=== PATIENT | female | born 1965 | race Caucasian/White ===

== ENCOUNTER 2021-05-09 14:33 | Emergency (ER) | payer SELFPAY ==
[2021-05-09 16:42] VITALS: BP 132/63; PULSE 89; RESP 15; TEMP 36.7; O2SAT 96; BMI 27.4
--- NOTE | 2021-05-09 16:55 | XRR_ITS ---
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 Pain in right great toe and 2nd digit; Additional info: Injury foot TECHNIQUE: Imaging protocol: XR Right foot. Views: 3 or more views. COMPARISON: No relevant prior studies available. FINDINGS: Bones/joints: Normal. Soft tissues: Normal. XR/XR foot RT min 3V* [id number] IMPRESSION: Negative for fracture or dislocation.
--- NOTE | 2021-05-09 16:55 | W.ED.EXTPRO ---
HPI - Extremity Problem General: Chief complaint: Extremity Injury, Lower Stated complaint: RLE INJURY Time Seen by Provider: 05/09/21 16:49 History of Present Illness: HPI Narrative: 55-year-old female comes in for injury to the distal right foot. 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 Patient reports that she had dropped the books to the distal right foot and since then had significant pain to the foot this morning. Patient appears well. Patient appears no acute distress. Review of Systems General: Reports: 10 or more systems reviewed and unremarkable except in HPI and below Musc: Reports: other (Right foot injury.) Physical Exam Const: COMMON NORMALS: no acute distress and patient oriented x3 GENERAL APPEARANCE: cooperative HENMT: COMMON NORMALS: normocephalic and Normal external nose present HEAD & SCALP: normal to inspection and normocephalic NOSE: Normal external nose present MOUTH: Normal oral and palatal mucosa present Eye: GENERAL EYE: appearance normal, both eyes and all related structures Neck/C-Spine: COMMON NORMALS: full ROM Chest: COMMONS NORMALS: normal inspection of the chest Resp: COMMON NORMALS: normal respiratory effort EFFORT & INSPECTION: Yes able to speak in complete sentences Cardio: COMMON NORMALS: regular rate and regular rhythm RATE: regular rate RHYTHM: regular rhythm GI: COMMON NORMALS: non-tender Extremity: NARRATIVE EXTREMITY EXAM: Tenderness to the dorsal aspect of the distal right foot. Pulses are intact. Cap refill is normal. Neuro: COMMON NORMALS: patient oriented x3 and moves all extremities Psych: COMMON NORMALS: mental status grossly normal and cooperative Skin: COMMON NORMALS: no rashes or lesions noted GENERAL SKIN EXAM: no rashes or lesions noted Course Vital Signs: Vital signs: Vital Signs Temperature 98.0 F 05/09/21 16:42 Pulse Rate 89 05/09/21 16:42 Respiratory Rate 15 05/09/21 16:42 Blood Pressure 132/63 05/09/21 16:42 Pulse Oximetry 96 05/09/21 16:42 MDM - Extremity (Nontraumatic) MDM Narrative: Medical decision making narrative: Patient comes in for injury to the right foot. Patient reports that she dropped a book on her foot. On exam there is no obvious swelling or bruising to the foot. Pulses are intact. No significant deformity is noted. Differential diagnosis includes but not limited to fracture, sprain, contusion. X-ray noted no fracture. Reviewed exam with patient with recommendations for treatment and follow-up. Patient also reports that she has a bruise to her left palm of her hand in the thenar region. Patient has normal range of motion. Patient appears well. Patient appears no acute distress. Discharge Plan Discharge Patient Disposition: Home Clinical Impression: Contusion of foot, right Qualifiers: Encounter type: initial encounter Qualified Code(s): S90.31XA - Contusion of right foot, initial encounter Condition: Stable Discharge Orders: Discharge ED (Routine); Ordered 05/09/21 Ordered By: Nils Ji Patient Instructions: Foot Contusion (ED), Opioid Safety Activity Restrictions/Additional Instructions: Activity as tolerated. Use elastic bandage for comfort. Use acetaminophen or ibuprofen for pain. Wear good supportive shoe for comfort. Home and elevate foot. Use ice to the foot for swelling and pain. Follow-up with primary care in 1 week. Return to the ER for new concerns. Coding Level of Care Code ED Chief Underwriter for Elizabeth Mcdaniel Exam Comprehensive
== END 2021-05-09 18:21 | disposition home or self-care (01) ==
PROVIDERS: Emergency Provider Nurse Practitioner Family
DX: S90.31XA Contusion of right foot, initial encounter (principal); W20.8XXA Other cause of strike by thrown, projected or falling object, initial encounter
CPT/HCPCS: 73630; 99282

== ENCOUNTER 2022-06-17 02:06 | Emergency (ER) | payer SELFPAY ==
[2022-06-17 02:11] VITALS: BP 155/86; PULSE 96; RESP 22; TEMP 36.2; O2SAT 95
--- NOTE | 2022-06-17 02:14 | XRR_ITS ---
PROCEDURE INFORMATION: Exam: XR Chest Exam date and time: 06/17/2022 2:24 AM Age: 56 years old Clinical indication: Shortness of breath; Patient HX: C/O SOB. TECHNIQUE: Imaging protocol: Radiologic exam of the chest. Views: 1 view. COMPARISON: MR thoracic spine wo/w [id number] 01/06/2017 10:01 AM FINDINGS: Lungs: There is mild hyperinflation of lungs. Minimal peripheral bilateral upper lung zone interstitial prominence is seen with minimal hazy opacities. This could be related to early interstitial or viral pneumonia, interstitial lung disease or other etiology. Recommend correlation with clinical findings and follow-up. Chest CT may be performed for complete assessment. Right lower lobe 5 x 5 mm calcified granuloma is seen. Pleural spaces: No pleural effusion. No pneumothorax. Heart/Mediastinum: The heart size is normal. The mediastinal contour is normal. The trachea is midline. Bones/joints: No acute osseous abnormalities seen. XR/XR chest 1V portable [id number] IMPRESSION: Mild hyperinflation of lungs. Minimal peripheral bilateral upper lung zone interstitial prominence with minimal hazy opacities. This could be related to early interstitial or viral pneumonia, interstitial lung disease or other etiology. Recommend correlation with clinical findings and follow-up. Chest CT may be performed for complete assessment.
--- NOTE | 2022-06-17 02:14 | ECG_ITS ---
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 Measurements Intervals [place] Rate: 96 P: 78 MN: 148 QRS: 45 QRSD: 73 T: 54 QT: 350 QTc: 442 Interpretive Statements SINUS RHYTHM WITH OCCASIONAL VENTRICULAR PREMATURE COMPLEXES NONSPECIFIC T-WAVE ABNORMALITY No previous ECG available for comparison Electronically Signed On 06-17-2022 19:46:49 CDT by Hal Osei M.D. [email or web address] - [email or web address].[email or web address]/store/NU/[id number] f
--- NOTE | 2022-06-17 02:21 | W.ED.SOB ---
HPI - SOB/Dyspnea General: Chief Complaint: Shortness of Breath/Dyspnea Stated Complaint: Sob Time Seen by Provider: 06/17/22 02:08 Source: patient Mode of arrival: ambulatory Limitations: no limitations History of Present Illness: HPI Narrative: 56-year-old female states that she woke up to the bathroom roughly 3045 minutes ago she started having some shortness of breath. She states that she felt like she could not get a breath then she denies any chest pain states since being here she is feeling improved she states she still does have some dyspnea but it is mild she appears anxious her oxygen here is 96% denies any cough denies any fever denies any worsening proving factors. Associated symptoms: Deny abdominal pain, chest pain, fever(s), nausea or vomiting Review of Systems Const: Denies: fever(s), chills, body aches or change in appetite Eyes: Denies: blurry vision or eye discomfort ENMT: Denies: throat pain or dental pain Card: Denies: chest pain Resp: Reports: dyspnea GI: Denies: abdominal pain, nausea, vomiting or diarrhea : Denies: dysuria Musc: Denies: neck pain or back pain Skin/Breast: Denies: rash Neuro: Denies: headache(s) Psych: Denies: depression Maged/Lymph: Denies: easy bruising All/Imm: Denies: urticaria PFS ED PFSH: Medical History (Updated 06/17/22 @ 04:47 by Wilda Gusman MD) No pertinent past medical history Social History (Updated 06/17/22 @ 02:22 by Wilda Gusman MD) Smoking and tobacco status: current every day smoker Physical Exam Const: COMMON NORMALS: no acute distress, patient oriented x3 and healthy appearing GENERAL APPEARANCE: anxious HENMT: COMMON NORMALS: normocephalic and atraumatic HEAD & SCALP: normocephalic and atraumatic Eye: COMMON NORMALS: Equal, round and reactive pupils present and EOMs intact bilaterally PUPIL: Yes Equal, round and reactive pupils present Neck/C-Spine: COMMON NORMALS: full ROM and supple Chest: COMMONS NORMALS: normal inspection of the chest and normal palpation of entire chest wall Resp: COMMON NORMALS: normal respiratory effort, No retractions, No use of accessory muscles and clear to auscultation bilaterally AUSCULTATION: clear to auscultation bilaterally Cardio: COMMON NORMALS: regular rate, regular rhythm and No murmurs present (Cardio) RATE: regular rate RHYTHM: regular rhythm GI: COMMON NORMALS: Normal to inspection, nondistended, normoactive bowel sounds present, Soft to palpation, non-tender and no masses PALPATION: Yes Soft to palpation Extremity: COMMON NORMALS: normal to inspection and full ROM Neuro: COMMON NORMALS: patient oriented x3, moves all extremities and no focal motor deficits Psych: COMMON NORMALS: mental status grossly normal, Normal thought process present and cooperative THOUGHT PROCESS: Normal thought process present Skin: COMMON NORMALS: no rashes or lesions noted and no wounds GENERAL SKIN EXAM: no rashes or lesions noted Course Vital Signs: Vital signs: Vital Signs Temperature 97.2 F L 06/17/22 02:11 Pulse Rate 86 06/17/22 03:51 Respiratory Rate 16 06/17/22 03:12 Blood Pressure 131/77 06/17/22 04:33 Pulse Oximetry 91 06/17/22 04:33 Oxygen Delivery Me thod 06/17/22 02:28 MDM - SOB/Dyspnea Medical Decision Making Patient presents here with shortness of breath she is well-appearing here she has been in no distress here pulse ox has been normal D-dimer and troponins are negative x-rays negative she is stable for discharge she is to follow-up with PCP and return if worsening. Lab Data : 06/17/22 02:30 06/17/22 02:30 Labs/Radiology: Laboratory Results WBC 5.9 10^3/uL (4.0-10.0) 06/17/22 02:30 RBC 4.62 10^6/uL (4.1-5.3) 06/17/22 02:30 Hgb 14.2 g/dL (11.5-15.3) 06/17/22 02:30 Hct 42.7 % (37.0-47.0) 06/17/22 02:30 MCV 92.4 fl (81-99) 06/17/22 02:30 MCH 30.7 pg (28.0-34.0) 06/17/22 02:30 MCHC 33.3 g/dL (30.0-36.0) 06/17/22 02:30 RDW 12.7 % (12.1-15.1) 06/17/22 02:30 Plt Count 167 10^3/cmm (130-400) 06/17/22 02:30 MPV 11.5 fL (7.4-10.4) H 06/17/22 02:30 Neut % (Auto) 33.0 % 06/17/22 02:30 Lymph % (Auto) 62.0 % 06/17/22 02:30 [place] % (Auto) 3.2 % 06/17/22 02:30 Eos % (Auto) 1.3 % 06/17/22 02:30 Baso % (Auto) 0.3 % 06/17/22 02:30 Neut # (Auto) 1.96 10^3/uL (1.8-7.7) 06/17/22 02:30 Lymph # (Auto) 3.7 10^3/uL (0.8-4.8) 06/17/22 02:30 [place] # (Auto) 0.2 10^3/uL (0.2-0.9) 06/17/22 02:30 Eos # (Auto) 0.1 10^3/uL (0.0-0.8) 06/17/22 02:30 Baso # (Auto) 0.0 10^3/uL (0.0-0.1) 06/17/22 02:30 Nucleated RBC % (auto) 0 % 06/17/22 02:30 Nucleated RBCs # 0.0 /100WBC 06/17/22 02:30 D-Dimer 0.47 ug/mIFEU (0-0.59) 06/17/22 02:30 Sodium 140 mmol/L (136-145) 06/17/22 02:30 Potassium 3.8 mmol/L (3.5-5.1) 06/17/22 02:30 Chloride 103 mmol/L (98-107) 06/17/22 02:30 Carbon Dioxide 26 mmol/L (22-29) 06/17/22 02:30 Anion Gap 14.8 (5-19) 06/17/22 02:30 BUN 12 mg/dL (6-20) 06/17/22 02:30 Creatinine 0.7 mg/dL (0.5-0.9) 06/17/22 02:30 GFR Calculation 86.2 mL/min (90-130) L 06/17/22 02:30 Glucose 101 mg/dL (65-115) 06/17/22 02:30 Calculated Osmolality 290 mOsm/kg (285-295) 06/17/22 02:30 Calcium 9.5 mg/dL (8.5-10.5) 06/17/22 02:30 Total Bilirubin 0.9 mg/dL (0.15-1.2) 06/17/22 02:30 AST 18 U/L (0-32) 06/17/22 02:30 ALT 10 U/L (0-33) 06/17/22 02:30 Alkaline Phosphatase 100 U/L (35-105) 06/17/22 02:30 Troponin T Baseline 19 ng/L (0-10) H 06/17/22 02:30 Troponin T 120 Minute 16.55 ng/L (0-10) H 06/17/22 04:11 Delta Troponin T -2.45 ABS# (0-10) L 06/17/22 04:11 Total Protein 6.8 g/dL (6.6-8.7) 06/17/22 02:30 Albumin 4.1 g/dL (3.5-5.2) 06/17/22 02:30 Globulin 2.7 g/dL (1.3-4.6) 06/17/22 02:30 EKG Data EKG 1: I personally reviewed and interpreted this EKG as follows: EKG Interpretation Date: 06/17/22 EKG interpretation time: 02:16 Interpretation: nsr hr [address] or t wave abnormalities qrs 73 qtc 403 EKG 2: I personally reviewed and interpreted this EKG as follows: EKG Interpretation Date: 06/17/22 EKG interpretation time: 04:04 Interpretation: nsr hr [address] or t wave abnormalities qrs 81 qtc 391 Discharge Plan Discharge Patient Disposition: Home Clinical Impression: Shortness of breath Discharge Orders: Discharge ED (Routine); Ordered 06/17/22 Ordered By: Wilda Gusman Discharge Diet: Advance as tolerated Discharge Activity: Resume usual activity Patient Instructions: Shortness of Breath (ED) Coding Level of Care Code ED Welder Plastic for Chg Fwd Exam Comprehensive
[2022-06-17] MEDS: LORazepam 1 mg Tablet PO (02:22)
[2022-06-17 02:28] VITALS: BP 123/86; PULSE 96; RESP 20; O2SAT 93
[2022-06-17 02:38] LABS: Basophils % 0.3 %; Eosinophils # 0.1 10^3/uL (0.0-0.8); Eosinophils % 1.3 %; Hematocrit 42.7 % (37.0-47.0); Hemoglobin 14.2 g/dL (11.5-15.3); Lymphocytes # 3.7 10^3/uL (0.8-4.8); Mean Corpuscular HGB Conc 33.3 g/dL (30.0-36.0); Mean Corpuscular Hemoglobin 30.7 pg (28.0-34.0); Mean Corpuscular Volume 92.4 fl (81-99); Mean Platelet Volume 11.5 fL (7.4-10.4); Monocytes # 0.2 10^3/uL (0.2-0.9); Monocytes % 3.2 %; Neutrophils # 1.96 10^3/uL (1.8-7.7); Nucleated Red Blood Cells % 0 %; Platelet Count 167 10^3/cmm (130-400); Red Blood Count 4.62 10^6/uL (4.1-5.3); Red Cell Distribution Width 12.7 % (12.1-15.1); White Blood Count 5.9 10^3/uL (4.0-10.0)
[2022-06-17 02:57] LABS: D Dimer 0.47 ug/mIFEU (0-0.59)
[2022-06-17 03:04] LABS: Alanine Aminotransferase 10 U/L (0-33); Albumin Level 4.1 g/dL (3.5-5.2); Alkaline Phosphatase 100 U/L (35-105); Anion Gap 14.8 (5-19); Aspartate Amino Transferase 18 U/L (0-32); Blood Urea Nitrogen 12 mg/dL (6-20); Calcium 9.5 mg/dL (8.5-10.5); Carbon Dioxide 26 mmol/L (22-29); Chloride 103 mmol/L (98-107); Globulin 2.7 g/dL (1.3-4.6); Glomerular Filtration Rate 86.2 mL/min (90-130); Glucose 101 mg/dL (65-115); Osmolality Calculated 290 mOsm/kg (285-295); Potassium 3.8 mmol/L (3.5-5.1); Sodium 140 mmol/L (136-145); Total Bilirubin 0.9 mg/dL (0.15-1.2); Total Protein 6.8 g/dL (6.6-8.7)
[2022-06-17 03:06] LABS: Troponin(5th) Baseline 19 ng/L (0-10)
[2022-06-17 03:12] VITALS: BP 135/79; PULSE 90; RESP 16; O2SAT 93
[2022-06-17 03:51] VITALS: BP 136/75; PULSE 86; O2SAT 94
--- NOTE | 2022-06-17 04:04 | ECG_ITS ---
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 Measurements Intervals [place] Rate: 87 P: 69 NM: 161 QRS: 30 QRSD: 81 T: 62 QT: 347 QTc: 418 Interpretive Statements SINUS RHYTHM NONSPECIFIC T-WAVE ABNORMALITY Compared to ECG 06/17/2022 02:16:39 Ventricular premature complex(es) no longer present T-wave abnormality still present Electronically Signed On 06-17-2022 19:54:13 CDT by Hal Osei M.D. [email or web address] Technologyuc [facility].[email or web address]/store/OM/[id number]/[id number]
[2022-06-17 04:33] VITALS: BP 131/77; O2SAT 91
[2022-06-17 04:39] LABS: Troponin 5 2HR 16.55 ng/L (0-10)
[2022-06-17 04:45] LABS: Troponin 5 2HR Delta -2.45 ABS# (0-10)
[2022-06-17 04:54] VITALS: BP 133/72; PULSE 106; RESP 18; O2SAT 94
== END 2022-06-17 04:54 | disposition home or self-care (01) ==
PROVIDERS: Emergency Provider Emergency Medicine
DX: R06.02 Shortness of breath (principal)
CPT/HCPCS: 71045; 80053; 84484; 85025; 85378; 93005; 99285

== ENCOUNTER 2024-04-29 22:05 | Inpatient (IN) | payer SELFPAY ==
[2024-04-29 22:15] VITALS: BP 148/85; PULSE 87; RESP 32; TEMP 36.4; O2SAT 85; BMI 25.6
--- NOTE | 2024-04-29 22:27 | ECG_ITS ---
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 Measurements Intervals [place] Rate: 80 P: 67 WV: 151 QRS: 74 QRSD: 69 T: 94 QT: 351 QTc: 407 Interpretive Statements SINUS RHYTHM SEPTAL MYOCARDIAL INFARCTION , PROBABLY OLD [40+ ms Q WAVE IN V1/V2] Compared to ECG 06/17/2022 04:04:44 Myocardial infarct finding now present T-wave abnormality no longer present Electronically Signed On 04-30-2024 7:09:08 CDT by Migel Hassan M.D. [email or web address] Strategiessumma health [facility] campus.[employer]/store/NU/[id number] f
--- NOTE | 2024-04-29 22:28 | W.ED.ABDPA2 ---
HPI - Abdominal Pain General: Chief Complaint: Abdominal Pain Stated Complaint: SOB pain in ribs Left Time Seen by Provider: 04/29/24 22:28 History of Present Illness: 58-year-old female comes in today with complaints of pain in the left anterior chest starting about 1 hour prior to arrival. No chronic medical problems are reported. Patient appears in severe pain. Patient is grunting with respirations. Patient is a tobacco user. Patient denies any routine medications. Review of Systems General: Reports: 10 or more systems reviewed and unremarkable except in HPI and below PFSH ED PFSH: Medical History (Updated 04/30/24 @ 00:01 by ADE Mckeon) No pertinent past medical history Social History (Updated 06/17/22 @ 02:22 by Wilda Gusman MD) Smoking and tobacco/nicotine status: current every day tobacco/nicotine user Physical Exam Const: COMMON NORMALS: alert HENMT: COMMON NORMALS: normocephalic HEAD & SCALP: normocephalic Neck/C-Spine: COMMON NORMALS: full ROM Chest: CHEST: Yes tenderness (Left anterior rib area) Resp: EFFORT & INSPECTION: Yes labored Cardio: COMMON NORMALS: regular rate and regular rhythm RATE: regular rate RHYTHM: regular rhythm GI: COMMON NORMALS: Soft to palpation and non-tender PALPATION: Yes Soft to palpation Back/Pelvis: COMMON NORMALS: thoracic and lumbar spine normal to inspection Extremity: COMMON NORMALS: normal to inspection Neuro: SENSORIUM/ORIENTATION: Yes alert Skin: COMMON NORMALS: turgor normal GENERAL SKIN EXAM: turgor normal Course Vital Signs: Vital signs: Vital Signs Temperature 97.6 F 04/29/24 22:15 Pulse Rate 102 H 04/30/24 00:00 Respiratory Rate 22 H 04/30/24 00:00 Blood Pressure 109/79 04/30/24 00:00 Pulse Oximetry 94 04/30/24 00:00 Oxygen Delivery Me thod Nasal Cannula 04/30/24 00:00 Oxygen Flow Rate 5 04/30/24 00:00 MDM - Abdominal Pain Medical Decision Making 58-year-old female comes in today for complaints of severe pain to the left chest wall. On exam patient is grunting with decreased air movement throughout lungs. Patient appears in severe pain. Abdomen guarded but does not elicit pain. Vital signs normal except for respirations at 32 and O2 sat at 85%. Differential diagnosis ACS, pulmonary embolism, esophageal rupture, aortic aneurysm, gallbladder disease, renal calculi, peptic ulcer disease, perforation of bowel or stomach. Chest x-ray noted and effusion in the left lower lung versus consolidation. CBC had a 14,000 white count. CMP was unremarkable. Patient was really uncomfortable in the left lung area I went ahead and did treat at first with 1 nitro and aspirin for possible cardiac involvement. Concern for fluid on the lungs prompted 20 mg of Lasix IV push. Patient was given hydromorphone x 1 with minimal relief of pain. Patient was given Haldol with diphenhydramine for continued pain and restlessness. The Haldol and Benadryl seem to improve symptoms and patient was able to rest. Oxygen saturation came up to 94% on 5 L per nasal cannula. CTA of the chest and abdomen noted bilateral pneumonia worse on the left than the right. No pulmonary embolism was noted. Blood cultures were ordered along with a respiratory to panel. Patient was started on Rocephin and azithromycin for community-acquired pneumonia. First troponin was less than 7. BNP was normal. Dr. Pickens, hospitalist, accepted patient for admission to hospital for bilateral pneumonia and hypoxia. Dr. Burroughs, ER attending, agreed with plan and placed admission orders. Lab Data 04/29/24 22:42 04/29/24 22:42 Labs/Radiology: Radiology Impressions Chest X-Ray 04/29/24 22:31 IMPRESSION: Nonspecific bibasilar opacity is present left greater than right, consistent with atelectasis, edema, or pneumonia. Chest/Abdomen/Pelvis CT 04/29/24 22:32 IMPRESSION: 1. There is no pulmonary embolism. 2. Mild bibasilar airspace opacity antc-nsiekqy-psty-right is present, consistent with probable pneumonic infiltrates. Severe emphysematous changes. 3. There is asymmetric 2.4 cm soft tissue nodule right breast image 6. Follow-up with mammography is recommended. IMPRESSION: No acute abnormality in the abdomen or pelvis. Laboratory Results WBC 14.47 10^3/uL (3.29-11.43) H 04/29/24 22:42 RBC 4.35 10^6/uL (3.85-5.65) 04/29/24 22:42 Hgb 13.40 g/dL (11.27-16.99) 04/29/24 22:42 Hct 40.4 % (36-47) 04/29/24 22:42 MCV 92.9 fl (85-98) 04/29/24 22:42 MCH 30.8 pg (27-33) 04/29/24 22:42 MCHC 33.2 g/dL (30-55) 04/29/24 22:42 RDW 12.1 % (12.1-15.1) 04/29/24 22:42 Plt Count 251 10^3/cmm (157-399) 04/29/24 22:42 MPV 11.1 fL (7.4-10.4) H 04/29/24 22:42 Neut % (Auto) 70.9 % 04/29/24 22:42 Lymph % (Auto) 22.6 % 04/29/24 22:42 [place] % (Auto) 4.8 % 04/29/24 22:42 Eos % (Auto) 1.1 % 04/29/24 22:42 Baso % (Auto) 0.2 % 04/29/24 22:42 Neut # (Auto) 10.25 10^3/uL (1.8-7.7) H 04/29/24 22:42 Lymph # (Auto) 3.3 10^3/uL (0.8-4.8) 04/29/24 22:42 [place] # (Auto) 0.7 10^3/uL (0.2-0.9) 04/29/24 22:42 Eos # (Auto) 0.2 10^3/uL (0.0-0.8) 04/29/24 22:42 Baso # (Auto) 0.0 10^3/uL (0.0-0.1) 04/29/24 22:42 Nucleated RBC % (auto) 0 % 04/29/24 22: Nucleated RBCs # 0.0 /100WBC 04/29/24 22:42 D-Dimer 0.65 ug/mLFEU (0-0.59) H 04/29/24 22:42 Specimen Type Arterial 04/29/24 22:40 Sample Site Brachial, right 04/29/24 22:40 ABG pH 7.35 (7.35-7.45) 04/29/24 22:40 ABG pCO2 49.5 mmHg (35-45) H 04/29/24 22:40 ABG pO2 60.9 mmHg (80.0-100.0) L 04/29/24 22:40 ABG HCO3 27.1 mmol/L (22-26) H 04/29/24 22:40 ABG Base Excess 0.8 mmol/L (-2.0-2.0) 04/29/24 22:40 Jung Test N/a 04/29/24 22:40 Hematocrit 39.9 % (37-47) 04/29/24 22:40 O2 Delivery Device Nc 04/29/24 22:40 O2 Liters/Min 3.0 % 04/29/24 22:40 Mechanical Design Technician ID [email or web address] 04/29/24 22:40 Sodium 140 mmol/L (136-145) 04/29/24 22:42 Potassium 3.9 mmol/L (3.5-5.1) 04/29/24 22:42 Chloride 104 mmol/L (98-107) 04/29/24 22:42 Carbon Dioxide 25 mmol/L (22-29) 04/29/24 22:42 Anion Gap 14.9 (5-19) 04/29/24 22:42 BUN 11 mg/dL (6-20) 04/29/24 22:42 Creatinine 0.6 mg/dL (0.5-0.9) 04/29/24 22:42 GFR Calculation 102.3 mL/min (90-130) 04/29/24 22:42 Glucose 119 mg/dL (65-115) H 04/29/24 22:42 Calculated Osmolality 291 mOsm/kg (285-295) 04/29/24 22:42 Lactic Acid 1.3 mmol/L (0.5-2.2) 04/29/24 22:42 Calcium 9.0 mg/dL (8.5-10.5) 04/29/24 22:42 Total Bilirubin 0.6 mg/dL (0.15-1.2) 04/29/24 22:42 AST 15 U/L (0-32) 04/29/24 22:42 ALT 10 U/L (0-33) 04/29/24 22:42 Alkaline Phosphatase 103 U/L (35-105) 04/29/24 22:42 Troponin T Baseline 7 ng/L (0-10) 04/29/24 22:42 C-Reactive Protein 45.0 mg/L (0.0-4.9) H 04/29/24 22:42 NT-Pro-B Natriuret Pep 67 pg/mL (0-125) 04/29/24 22:42 Total Protein 6.8 g/dL (6.6-8.7) 04/29/24 22:42 Albumin 4.0 g/dL (3.5-5.2) 04/29/24 22:42 Globulin 2.8 g/dL (1.3-4.6) 04/29/24 22:42 Lipase 20 U/L (13-60) 04/29/24 22:42 All radiology interpretation(s) finalized by discharge EKG Data EKG 1: I personally reviewed and interpreted this EKG as follows: EKG interpretation date: 04/29/24 EKG interpretation time: 22:25 Prior EKG tracings: not available for review Interpretation: EKG shows a sinus rhythm with a regular rate at [address] elevation is noted. Artifact is present on the EKG. No ectopy is noted. No prior exam was available for comparison. Computer generated interpretation: Sinus rhythm, septal myocardial infarction probably old, compared to EKG from 06/17/2022, myocardial infarct finding now present, T wave abnormality no longer present. Discharge Plan Discharge Patient Disposition: Admitted As Inpatient Clinical Impression: Pneumonia Qualifiers: Pneumonia type: due to unspecified organism Laterality: bilateral Lung location: lower lobe of lung Qualified Code(s): J18.9 - Pneumonia, unspecified organism Condition: Stable Coding Level of Care Code ED Assembly Mechanic for Elizabeth Mcdaniel
--- NOTE | 2024-04-29 22:31 | XRR_ITS ---
PROCEDURE INFORMATION: Exam: XR Chest Exam date and time: 04/29/2024 10:43 PM Age: 58 years old Clinical indication: Left-sided; Patient HX: Lt lower anterior rib pain; Labored breathing; No known injury TECHNIQUE: Imaging protocol: Radiologic exam of the chest. Views: 1 view. COMPARISON: CR XR chest 1V portable [id number] 06/17/2022 2:24 AM FINDINGS: Lungs: Nonspecific bibasilar opacity is present left greater than right, consistent with atelectasis, edema, or pneumonia. Lungs are hyperinflated compatible with underlying COPD. Pulmonary vascularity is within normal limits. Pleural spaces: Unremarkable. No pleural effusion. No pneumothorax. Heart/Mediastinum: Unremarkable. No cardiomegaly. Bones/joints: No acute abnormality. XR/XR chest 1V portable [id number] IMPRESSION: Nonspecific bibasilar opacity is present left greater than right, consistent with atelectasis, edema, or pneumonia.
--- NOTE | 2024-04-29 22:32 | CTR_ITS ---
PROCEDURE INFORMATION: Exam: CTA Chest With Contrast Exam date and time: 04/29/2024 10:56 PM Age: 58 years old Clinical indication: Abdominal pain; Localized; Left upper quadrant (luq); Cough and dyspnea; Smoker's cough; Chest wall pain; Patient HX: Cough with dyspnea and hypoxia. Fever. Severe left chest wall/luq pain. ; Additional info: Severe pain TECHNIQUE: Imaging protocol: Computed tomographic angiography of the chest with contrast. Exam focused on the arteries. 3D rendering (Not supervised by radiologist): MIP and/or 3D reconstructed images were created by the technologist. Radiation optimization: All CT scans at this facility use at least one of these dose optimization techniques: automated exposure control; mA and/or kV adjustment per patient size (includes targeted exams where dose is matched to clinical indication); or iterative reconstruction. Contrast material: OMNI 350; Contrast volume: 100 ml; Contrast route: INTRAVENOUS (IV); COMPARISON: CR (CHEST, ) 04/29/2024 10:43 PM RADIATION DOSE METRICS: Total DLP (mGy-cm): 1490.04 FINDINGS: Pulmonary arteries: There is no pulmonary embolism. Aorta: Unremarkable. No aortic aneurysm. No aortic dissection. Lungs: There are severe emphysematous changes. Mild bibasilar airspace opacity [id number]-right is present, consistent with probable pneumonic infiltrates. There is a right lower lobe calcified granuloma. Pleural spaces: Unremarkable. No pneumothorax. No pleural effusion. Heart: Unremarkable. No cardiomegaly. No pericardial effusion. Lymph nodes: Unremarkable. No enlarged lymph nodes. Diaphragm: A small hiatal hernia is present. Bones/joints: Unremarkable. No acute fracture. Soft tissues: There is asymmetric 2.4 cm soft tissue nodule right breast image 6. COMMENTS: The presence of pulmonary emphysema on CT is an independent risk factor for lung cancer. In the absence of a history or active diagnosis of lung cancer, it is recommended that this patient with emphysema be evaluated for enrollment in a low dose CT lung cancer screening program. PROCEDURE INFORMATION: Exam: CT Abdomen And Pelvis With Contrast Exam date and time: 04/29/2024 10:56 PM Age: 58 years old Clinical indication: Abdominal pain; Localized; Left upper quadrant (luq); Cough and dyspnea; Smoker's cough; Chest wall pain; Patient HX: Cough with dyspnea and hypoxia. Fever. Severe left chest wall/luq pain. ; Additional info: Severe pain TECHNIQUE: Imaging protocol: Computed tomography of the abdomen and pelvis with contrast. Radiation optimization: All CT scans at this facility use at least one of these dose optimization techniques: automated exposure control; mA and/or kV adjustment per patient size (includes targeted exams where dose is matched to clinical indication); or iterative reconstruction. Contrast material: OMNI 350; Contrast volume: 100 ml; Contrast route: INTRAVENOUS (IV); COMPARISON: CR (CHEST, ) 04/29/2024 10:43 PM RADIATION DOSE METRICS: Total DLP (mGy-cm): 1490.04 FINDINGS: Liver: There is a 1 cm hypodense nodule in the left lobe of the liver with peripheral vascular puddling suspected to be an incidental hemangioma. Gallbladder and biliary ducts: There is a large gallstone. There is no wall thickening or pericholecystic fluid to suggest cholecystitis. There is no common bile duct dilation. Pancreas: The pancreas is normal. The pancreas is normal. Spleen: The spleen is normal. Adrenal glands: The adrenal glands are normal. Kidneys and ureters: There is no evidence of hydronephrosis. There is no evidence of renal calcifications. Stomach and bowel: There is no evidence of intestinal perforation or obstruction. There is excessive colonic stool content. There is no evidence of colitis/diverticulitis. Appendix: No evidence of appendicitis. Intraperitoneal space: Unremarkable. No free air. No significant fluid collection. Vasculature: The aorta demonstrates moderate atherosclerotic calcification. Lymph nodes: Unremarkable.No enlarged lymph nodes. Urinary bladder: The bladder is decompressed. Reproductive: Unremarkable as visualized. Bones/joints: Unremarkable. No acute fracture. Soft tissues: MonitorThere is a fat-containing umbilical hernia. There is laxity of the pelvic floor. CT/CT angio chest w abd pel w con IMPRESSION: 1. There is no pulmonary embolism. 2. Mild bibasilar airspace opacity [id number]-right is present, consistent with probable pneumonic infiltrates. Severe emphysematous changes. 3. There is asymmetric 2.4 cm soft tissue nodule right breast image 6. Follow-up with mammography is recommended. IMPRESSION: No acute abnormality in the abdomen or pelvis.
[2024-04-29] MEDS: HYDROmorphone 1 mg/mL INJ 1 mL IVP (22:42)
[2024-04-29] MEDS: nitroglycerin 0.4 mg sublingual Tablet SUBLINGUAL (22:43)
[2024-04-29] MEDS: aspirin 81 mg Chew Tablet 324 MG PO (22:44)
[2024-04-29 22:45] VITALS: BP 164/86; PULSE 92; RESP 31; O2SAT 90
[2024-04-29 22:49] LABS: Basophils % 0.2 %; Eosinophils # 0.2 10^3/uL (0.0-0.8); Eosinophils % 1.1 %; Hematocrit 40.4 % (36-47); Lymphocytes # 3.3 10^3/uL (0.8-4.8); Lymphocytes % 22.6 %; Mean Corpuscular HGB Conc 33.2 g/dL (30-55); Mean Corpuscular Hemoglobin 30.8 pg (27-33); Mean Corpuscular Volume 92.9 fl (85-98); Mean Platelet Volume 11.1 fL (7.4-10.4); Monocytes # 0.7 10^3/uL (0.2-0.9); Monocytes % 4.8 %; Neutrophils # 10.25 10^3/uL (1.8-7.7); Neutrophils % 70.9 %; Nucleated Red Blood Cells % 0 %; Platelet Count 251 10^3/cmm (157-399); Red Blood Count 4.35 10^6/uL (3.85-5.65); Red Cell Distribution Width 12.1 % (12.1-15.1); White Blood Count 14.47 10^3/uL (3.29-11.43)
[2024-04-29 22:51] LABS: ABG PCO2 49.5 mmHg (35-45); ABG PH Result 7.35 (7.35-7.45); Arterial Blood Gas Hematocrit 39.9 % (37-47); Base Excess ABG 0.8 mmol/L (-2.0-2.0); Blood Gas Sample Site Brachial, right; Blood Gas Sample Type Arterial; HCO3 ABG 27.1 mmol/L (22-26); Oxygen Device NC; PO2 ABG 60.9 mmHg (80.0-100.0)
[2024-04-29] MEDS: iohexol 350 mg/mL 500 mL Btl (per mL) IV (22:56)
[2024-04-29 23:09] LABS: Lactic Sepsis W/Reflex 1.3 mmol/L (0.5-2.2)
[2024-04-29 23:12] LABS: Troponin(5th) Baseline 7 ng/L (0-10)
[2024-04-29] MEDS: FUROsemide 10 mg/mL SDV 2mL 20 MG IVP (23:16)
[2024-04-29 23:19] LABS: Alanine Aminotransferase 10 U/L (0-33); Alkaline Phosphatase 103 U/L (35-105); Anion Gap 14.9 (5-19); Aspartate Amino Transferase 15 U/L (0-32); Blood Urea Nitrogen 11 mg/dL (6-20); Carbon Dioxide 25 mmol/L (22-29); Chloride 104 mmol/L (98-107); Creatinine Clr Calc Pharmacy 88.3913; Globulin 2.8 g/dL (1.3-4.6); Glomerular Filtration Rate 102.3 mL/min (90-130); Glucose 119 mg/dL (65-115); Lipase 20 U/L (13-60); NT Pro B Type Natriuretic Pept 67 pg/mL (0-125); Osmolality Calculated 291 mOsm/kg (285-295); Potassium 3.9 mmol/L (3.5-5.1); Sodium 140 mmol/L (136-145); Total Bilirubin 0.6 mg/dL (0.15-1.2); Total Protein 6.8 g/dL (6.6-8.7)
[2024-04-29 23:20] LABS: D Dimer 0.65 ug/mLFEU (0-0.59)
[2024-04-29] MEDS: diphenhydrAMINE 50 mg/mL SDV 1mL 12.5 MG IVP (23:57)
[2024-04-29] MEDS: haloperidol inj 5 mg/mL INJ 1 mL IVP (23:59)
[2024-04-30] VITALS (68 sets, daily range): BP systolic 83–112; BP diastolic 49–79; PULSE 67–102; RESP 10–32; TEMP 36.5–36.8; O2SAT 88–96
[2024-04-30 00:12] LABS: Add Urine Microscopic? NO; Charge for UA Resulting for Rev
[2024-04-30 00:31] LABS: Bilirubin Urine Neg (Negative); Blood Urine Neg (Negative); Glucose Urine UA Norm (Normal); Ketones Urine Negative (Negative); Leukocyte Esterase Urine Negative (Negative); Nitrate Urine Negative (Negative); Protein Urine Neg (Negative); Specific Gravity, Urine 1.005 (1.005-1.030); Urine Appearance Clear (CLEAR); Urine Color Yellow (Yellow); Urobilinogen Urine Neg (Negative); pH Urine 5 (5-7)
[2024-04-30] MEDS: cefTRIAXone 2,000 mg SDV 2000 MG IVP (00:43)
[2024-04-30 00:45] LABS: Troponin 5 2HR 7.49 ng/L (0-10); Troponin 5 2HR Delta 0.49 ABS# (0-10)
[2024-04-30] MEDS: azithromycin 500 MG in sodium chloride 0.9% 250 ML 250 MG IV (00:47)
[2024-04-30 00:48] LABS: Lactic Sepsis W/Reflex 0.7 mmol/L (0.5-2.2)
--- NOTE | 2024-04-30 01:03 | USCV_ITS ---
Trisha Silveira Age: 58 Gender: F : 1965 Exam Date: 04/30/2024 08:23 Ordering Phys: Teresita Pickens MD Technologist: Kevin Jackson [place] [facility] [place]: sob BP: 91 / 49 HR: 78 Rhythm: Sinus Technical Quality: Suboptimal MEASUREMENTS (Male / Female) Normal Values 2D ECHO LV Diastolic Diameter PLAX 3.7 cm 4.2 - 5.9 / 3.9 - 5.3 cm IVS Diastolic Thickness 1.1 cm 0.6 - 1.0 / 0.6 - 0.9 cm IVS Systolic Thickness 1.2 cm LVPW Diastolic Thickness 1.6 cm 0.6 - 1.0 / 0.6 - 0.9 cm LVPW Systolic Thickness 1.7 cm LVOT Diameter 2.1 cm LV Ejection Fraction 2D Teich 74.3 % LV Ejection Fraction MOD 4C 62.1 % LV Ejection Fraction MOD 2C 71.5 % LV Ejection Fraction 2C AL 73.2 % LA Diameter 3.0 cm RA Systolic Volume 4C AL 38.0 ml RA Systolic Volume 4C MOD 37.0 ml LA Sys Volume AL 30.0 cm cubed LA Sys Volume Index AL 20.0 cm cubed/m squared Aorta at Sinotubular Diameter 1.7 cm IVC Diameter 1.5 cm M-MODE LA Ao Ratio MM 1.0 AV Cusp Separation MM 1.7 cm DOPPLER AV Peak Velocity 134.0 cm/s LVOT Peak Velocity 120.0 cm/s AV Area Cont Eq vti 2.6 cm squared AV Area Cont Eq pk 3.0 cm squared MV Peak Velocity 101.0 cm/s MV Area PHT 5.8 cm squared Mitral E to A Ratio 0.9 TR Peak Velocity 352.0 cm/s TR Peak Gradient 49.6 mmHg TR Mean Velocity 253.0 cm/s TR Mean Gradient 29.5 mmHg TR Velocity Time Integral 103.6 cm FINDINGS Left Ventricle Normal left ventricular size, systolic function and wall thickness, with no regional wall motion abnormalities. Normal left ventricular wall thickness. Normal diastolic filling pattern. Right Ventricle The right ventricle is normal in size and function. Right Atrium The right atrium is normal in size. Left Atrium The left atrium is normal in size. Mitral Valve Structurally normal mitral valve without significant stenosis or prolapse. There is no mitral regurgitation. Aortic Valve Structurally normal aortic valve without significant sclerosis or stenosis. There is no aortic regurgitation. Tricuspid Valve Structurally normal tricuspid valve without significant stenosis or regurgitation. Pulmonary artery systolic pressure is normal. Pulmonic Valve Pulmonic valve not well visualized. Pericardium Normal pericardium without effusion. Aorta Normal ascending aorta dimension. IVC The inferior vena cava appears normal. CONCLUSIONS Normal transthoracic echocardiogram. There are no prior echocardiogram studies to compare. Dr. Migel Hassan MD (Electronically Signed) Final Date: 30 April 2024 14:14 S
[2024-04-30] MEDS: heparin 5,000 unit/mL INJ 1 mL 5000 UNIT SUBCUT ×2 (01:49→14:09)
[2024-04-30] MEDS: sodium chloride 0.9% 1,000 ML 125 ML IV ×3 (01:50→18:26)
[2024-04-30 01:56] LABS: Adenovirus Not Detected (NOT DETECT); Chlamydia Pneumoniae Not Detected (NOT DETECT); Coronavirus 229E,HKU1,NL63,OC4 Not Detected (NOT DETECT); Human Metapneumovirus Not Detected (NOT DETECT); Human Rhinovirus/Enterovirus Not Detected (NOT DETECT); Influenza A Not Detected (NOT DETECT); Influenza A H1 Not Detected (NOT DETECT); Influenza A H1-2009 Not Detected (NOT DETECT); Influenza A H3 Not Detected (NOT DETECT); Influenza B Not Detected (NOT DETECT); Mycoplasma Pneumoniae Not Detected (NOT DETECT); Parainfluenza Virus Type 1 Not Detected (NOT DETECT); Parainfluenza Virus Type 2 Not Detected (NOT DETECT); Parainfluenza Virus Type 3 Not Detected (NOT DETECT); Parainfluenza Virus Type 4 Not Detected (NOT DETECT); Respiratory Syncytial Virus A Not Detected (NOT DETECT); Respiratory Syncytial Virus B Not Detected (NOT DETECT); SARS-COV-2 Not Detected (NOT DETECT)
[2024-04-30 02:07] LABS: Procalcitonin 0.06 ng/mL (0-0.5); Thyroid Stimulating Hormone 1.92 uIU/mL (0.27-4.20)
--- NOTE | 2024-04-30 02:50 | P.HP_ITS ---
Providers/Chief Complaint 2 Chief Complaint: Sudden Severe SOB pain in ribs Left History of Present Illness Trisha Silveira is a 58 year old female With no significant past medical history presented to the hospital today with pain on left side of her chest that started an hour before she came to the hospital. She does not have any other medical conditions. Patient was grunting when she walked in. She is a chronic smoker. On arrival blood pressure 109/79, respiratory 22, pulse 102, temperature 97.6 saturating 94% on 5 L nasal cannula. She was hypoxic down to low 80s. Chest x- ray showed effusion and left lower lung versus consolidation. WBC 14,000. CMP unremarkable. Nitro and aspirin were given initially and 20 of Lasix. She was given hydromorphone x 1 with minimal relief of pain. She was then given Haldol with diphenhydramine for continued pain and restlessness. Those seem to improve patient and she was able to rest. CT chest abdomen pelvis was performed which ruled out pulmonary embolism however showed bilateral pneumonia worse on the left than the right. Respiratory viral panel was ordered. Patient was given Rocephin and azithromycin for community-acquired pneumonia. Initial troponin 7, subsequent troponins pending BNP normal. CT chest does show severe emphysematous changes. D-dimer 0.65, UA negative Seen laying in bed appearing comfortable at this time. She is on 5 L nasal cannula. Blood pressure 97/60, temp normal. Medications/Allergies Home Medications Medication Instructions Recorded Confirmed Last Taken Type No Known Home Medications 04/30/24 04/30/24 Unknown History Allergies Allergy/AdvReac Type Severity Reaction Status Date / Time No Known Allergies Allergy Verified 06/17/22 02:19 PFSH Acute 2 PFSH: Medical History (Updated 04/30/24 @ 00:35 by ADE Mckeno) No pertinent past medical history Social History (Updated 06/17/22 @ 02:22 by Wilda Gusman MD) Smoking and tobacco/nicotine status: current every day tobacco/nicotine user Vitals/I&O/Wt Last Vital Signs Temp 97.6 F 04/29/24 22:15 Pulse 88 04/30/24 00:30 Resp 22 H 04/30/24 00:00 BP 101/61 04/30/24 00:30 Pulse Ox 91 04/30/24 00:30 O2 Del Method Nasal Cannula 04/30/24 00:30 O2 Flow Rate 5 04/30/24 00:30 Weight last 48 hrs Weight 63.503 kg Physical Exam 2 Narrative: General: Alert oriented x3, patient seen laying in bed appearing comfortable on 5 L nasal cannula saturating 96%. HEENT: Normocephalic, atraumatic, EOMI, no conversational dyspnea no acute respiratory distress. Cardio: Regular rate rhythm, normal S1-S2 Respiratory: Rhonchi bilateral lung burgos at the bases GI: Abdomen soft, nontender, nondistended, bowel sounds + Extremities: No edema bilateral lower extremities Data 04/29/24 22:42 04/29/24 22:42 Micro: Microbiology 04/30/24 00:18 Blood Culture - Preliminary Blood SPECIMEN COLLECTED 04/30/24 00:20 Blood Culture - Preliminary Blood SPECIMEN COLLECTED A&P Assessment and plan (1) Pneumonia: Qualifiers: Laterality: bilateral Lung location: lower lobe of lung Pneumonia type: due to unspecified organism Qualified Code(s): J18.9 - Pneumonia, unspecified organism (2) No pertinent past medical history: (3) Shortness of breath: Plan #Pneumonia #Leukocytosis, SOB 2/2 to above #Does not follow a PCP #Breast nodule 2.4 cm #Severe emphysema - She presented with sob and now is requiring o2 5L. C-reactive protein elevated, leukocytosis 14,000 on admission. She does not follow with And considers herself generally healthy. Does not have a primary care doctor either. She denies having any history of COPD or any other medical problems. She is not on any home medications at home. CT did rule out PE. ? CT chest does show emphysematous changes which seem to be severe. There is evidence of pneumonia ? Placed on ceftriaxone, azithromycin ? DuoNeb every 6 hours as needed ? Placed on normal saline 125 cc/h ? Respiratory viral panel ordered ? Check procalcitonin ? Check TSH ? Lactic acid 0.7. BNP 67. ? Check blood cultures, sputum culture Gram stain ? UA negative - Check bacterial angtigens, strep, legionella - Wean off o2 as able - There is asymmetric 2.4 cm soft tissue nodule right breast image 6. Follow-up with mammography is recommended. Patient will need to have prescription for mammography at discharge. Full code DVT prophylaxis: Heparin SQ twice daily. Attestations 2 Medical Necessity Statement*: > 2 midnight stay for management of pneumonia Diagnoses Pneumonia J18.9 Laterality: bilateral Lung location: lower lobe of lung Pneumonia type: due to unspecified organism No pertinent past medical history Z78.9 Shortness of breath R06.02
--- NOTE | 2024-04-30 04:41 | ECG_ITS ---
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 Measurements Intervals [place] Rate: 70 P: 73 IN: 168 QRS: 47 QRSD: 70 T: 43 QT: 382 QTc: 413 Interpretive Statements SINUS RHYTHM NONSPECIFIC T-WAVE ABNORMALITY Compared to ECG 04/29/2024 22:20:43 T-wave abnormality now present Myocardial infarct finding no longer present Electronically Signed On 04-30-2024 7:13:37 CDT by Migel Hassan M.D. [id number]
--- NOTE | 2024-04-30 05:01 | PC.RESP ---
0027 ekg was not done prior to patient being transferred to the floor and was an hour late when patient arrived to [facility].
[2024-04-30 05:22] LABS: Troponin 5 6HR 8.74 ng/L (0-10); Troponin 5 6HR Delta 1.74 ng/L (0-12)
[2024-04-30 07:43] LABS: Add Urine Microscopic? NO; Charge for UA Resulting for Rev
[2024-04-30 07:49] LABS: Bilirubin Urine Neg (Negative); Blood Urine Neg (Negative); Glucose Urine UA Norm (Normal); Ketones Urine Negative (Negative); Leukocyte Esterase Urine Negative (Negative); Nitrate Urine Negative (Negative); Protein Urine Neg (Negative); Urine Appearance Clear (CLEAR); Urine Color Yellow (Yellow); Urobilinogen Urine Norm (Negative); pH Urine 5 (5-7)
[2024-04-30] MEDS: ipratropium-albuterol 3 mL Neb INHALATION ×3 (07:56→19:55)
[2024-04-30 14:19] LABS: Basophils % 0.2 %; Eosinophils # 0.1 10^3/uL (0.0-0.8); Eosinophils % 0.5 %; Hematocrit 33.9 % (36-47); Lymphocytes # 2.1 10^3/uL (0.8-4.8); Lymphocytes % 16.5 %; Mean Corpuscular HGB Conc 32.4 g/dL (30-55); Mean Corpuscular Hemoglobin 30.8 pg (27-33); Monocytes # 0.7 10^3/uL (0.2-0.9); Neutrophils # 9.44 10^3/uL (1.8-7.7); Neutrophils % 76.2 %; Nucleated Red Blood Cells % 0 %; Platelet Count 213 10^3/cmm (157-399); Red Blood Count 3.57 10^6/uL (3.85-5.65); Red Cell Distribution Width 12.4 % (12.1-15.1); White Blood Count 12.39 10^3/uL (3.29-11.43)
[2024-04-30] MEDS: morphine 4 mg/mL SDV 1 mL 2 MG IVP (14:24)
[2024-04-30 14:39] LABS: Anion Gap 13.5 (5-19); Blood Urea Nitrogen 12 mg/dL (6-20); Calcium 8.2 mg/dL (8.5-10.5); Carbon Dioxide 25 mmol/L (22-29); Chloride 105 mmol/L (98-107); Creatinine Clr Calc Pharmacy 73.6078; Glomerular Filtration Rate 85.6 mL/min (90-130); Glucose 142 mg/dL (65-115); Osmolality Calculated 290 mOsm/kg (285-295); Potassium 4.5 mmol/L (3.5-5.1); Sodium 139 mmol/L (136-145)
--- NOTE | 2024-04-30 14:39 | ECG_ITS ---
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 Measurements Intervals [place] Rate: 91 P: 0 AL: 0 QRS: 53 QRSD: 73 T: 71 QT: 355 QTc: 439 Interpretive Statements Likely sinus rhythm, significant baseline artifact NONSPECIFIC ST & T-WAVE ABNORMALITY ABNORMAL RHYTHM ECG INTERPRETATION BASED ON A DEFAULT AGE OF 40 YEARS Compared to ECG 04/30/2024 04:41:16 T-wave abnormality still present Electronically Signed On 05-01-2024 9:21:31 CDT by Migel Hassan M.D. [email or web address] Mobile Securitysharkey issaquena community hospitalMandata (Management & Data Services)[facility].[employer]/store/[id number] f
--- NOTE | 2024-04-30 14:41 | XRR_ITS ---
PROCEDURE INFORMATION: Exam: XR Chest Exam date and time: 04/30/2024 3:01 PM Age: 58 years old Clinical indication: Chest wall pain and left-sided; Patient HX: -lt anteror/lower chest pain; SOB; Cough; Low o2; Additional info: -lt anteror/lower chest pain; SOB; Cough; Low o2 TECHNIQUE: Imaging protocol: Radiologic exam of the chest. Views: 1 view. COMPARISON: CT angio chest w abd pel w con 04/29/2024 10:56 PM FINDINGS: Lungs: Mild hypoinflation. Findings congruent with COPD which are better evaluated on CT pulmonary angiogram performed on 04/29/2024. Pleural spaces: Unremarkable. No pleural effusion. No pneumothorax. Heart/Mediastinum: Unremarkable. No cardiomegaly. Bones/joints: Diffuse degenerative change of the visualized osseous structures. XR/XR chest 1V portable [id number] IMPRESSION: 1. No significant acute change. 2. Additional findings as above.
[2024-04-30 14:59] LABS: Troponin T (5th) Once 12 ng/L (0-10)
[2024-04-30] MEDS: methylPREDNISolone sod succ 125 mg/2 mL INJ IVP (15:10)
[2024-04-30] MEDS: ibuprofen 200 mg Tablet 400 MG PO (15:10)
--- NOTE | 2024-04-30 16:58 | PC.NURSE ---
At 1420 patient complained of increasing pain in her left shoulder and was grunting and breathing shallow breaths. At 1424 continuity writer gave her a dose of ordered morphine and told patient I would be back in 10 minutes to check her pain level. At the 10 min roxana she said pain was worse. Dr. Pickens notified and gave written orders for a stat EKG, stat chest xray, and stat troponin. She also ordered 125 IVP of solumedrol and 400mg of ibuprofen. Within 10 min the patient was calmer and had eased her work of breathing and was no longer grunting. Nurse checked in on patient several times within the next two hours and she said her pain was subsiding and she was resting in bed. Saturations are currently at 93 and she is on 4L nasal cannula.
[2024-04-30] MEDS: methylPREDNISolone sod succ 40 mg/mL INJ IVP (20:52)
[2024-05-01] VITALS (9 sets, daily range): BP systolic 101–128; BP diastolic 49–59; PULSE 54–97; RESP 14–24; TEMP 36.4–36.9; O2SAT 91–96
[2024-05-01] MEDS: cefTRIAXone 1,000 mg SDV 1000 MG IVP (00:09)
[2024-05-01] MEDS: heparin 5,000 unit/mL INJ 1 mL 5000 UNIT SUBCUT ×2 (00:12→14:35)
[2024-05-01] MEDS: sodium chloride 0.9% 1,000 ML 125 ML IV (00:24)
[2024-05-01] MEDS: azithromycin 500 MG in sodium chloride 0.9% 250 ML 250 MG IV (00:24)
[2024-05-01 03:39] LABS: Basophils % 0.1 %; Hematocrit 33.2 % (36-47); Lymphocytes % 10.7 %; Mean Corpuscular HGB Conc 31.9 g/dL (30-55); Mean Corpuscular Hemoglobin 30.5 pg (27-33); Mean Corpuscular Volume 95.7 fl (85-98); Mean Platelet Volume 11.2 fL (7.4-10.4); Monocytes # 0.1 10^3/uL (0.2-0.9); Monocytes % 1.2 %; Neutrophils # 8.29 10^3/uL (1.8-7.7); Neutrophils % 87.6 %; Nucleated Red Blood Cells % 0 %; Platelet Count 206 10^3/cmm (157-399); Red Blood Count 3.47 10^6/uL (3.85-5.65); Red Cell Distribution Width 12.5 % (12.1-15.1); White Blood Count 9.46 10^3/uL (3.29-11.43)
[2024-05-01 03:58] LABS: Alanine Aminotransferase 22 U/L (0-33); Albumin Level 3.2 g/dL (3.5-5.2); Alkaline Phosphatase 103 U/L (35-105); Anion Gap 15.4 (5-19); Aspartate Amino Transferase 30 U/L (0-32); Blood Urea Nitrogen 12 mg/dL (6-20); Calcium 8.6 mg/dL (8.5-10.5); Carbon Dioxide 22 mmol/L (22-29); Chloride 108 mmol/L (98-107); Creatinine Clr Calc Pharmacy 73.6078; Globulin 2.9 g/dL (1.3-4.6); Glomerular Filtration Rate 85.6 mL/min (90-130); Glucose 138 mg/dL (65-115); Magnesium 1.9 mg/dL (1.7-2.3); Osmolality Calculated 294 mOsm/kg (285-295); Potassium 4.4 mmol/L (3.5-5.1); Sodium 141 mmol/L (136-145); Total Bilirubin 0.3 mg/dL (0.15-1.2); Total Protein 6.1 g/dL (6.6-8.7)
[2024-05-01 04:00] LABS: Lactic Sepsis W/Reflex 0.9 mmol/L (0.5-2.2)
[2024-05-01] MEDS: methylPREDNISolone sod succ 40 mg/mL INJ IVP (04:42)
[2024-05-01] MEDS: ipratropium-albuterol 3 mL Neb INHALATION ×4 (08:35→21:05)
--- NOTE | 2024-05-01 11:40 | PC.NURSE ---
NS fluids stopped per provider.
--- NOTE | 2024-05-01 12:42 | P.PN_ITS ---
Subjective 2 Subjective: Patient states she feels symptomatically better today. Currently on 5 L/min supplemental O2. Medications: Reviewed: Yes Vitals/I&O/Wt Last Vital Signs Temp 97.7 F 05/01/24 03:49 Pulse 89 05/01/24 11:41 Resp 20 H 05/01/24 11:41 BP 109/52 05/01/24 08:00 Pulse Ox 92 05/01/24 11:41 O2 Del Method Nasal Cannula 05/01/24 11:41 O2 Flow Rate 5 05/01/24 11:41 04/30/24 05/01/24 05/01/24 22:59 06:59 14:59 Intake Total 1240 / 2240 995.833 / 3235.833 1360 / 1360 Balance 1240 / 1840 995.833 / 2835.833 1360 / 1360 Weight last 48 hrs Weight 61.87 kg Weight 59.557 kg Weight 58.559 kg Weight 63.503 kg Physical Exam 2 Narrative: General: No acute distress, AO x3 HEENT: PERRLA, pupils bilaterally equal and reactive, pallors not present Chest: Normal vesicular breath sounds, no added sounds, equal good air entry bilaterally CVS: S1-S2 regular, no murmurs, no tachycardia, no gallops, no rubs Abdomen: Soft, nontender, no organomegaly, bowel sounds present Neuro: No focal deficits, no facial deformity, AO x3, power 5/5 in all limbs Extremities: No edema clubbing cyanosis Data 05/01/24 03:28 05/01/24 03:28 Micro: Microbiology 04/30/24 00:18 Blood Culture - Preliminary Blood NEGATIVE TO DATE 04/30/24 00:20 Blood Culture - Preliminary Blood NEGATIVE TO DATE A&P Assessment and plan (1) Pneumonia: Qualifiers: Laterality: bilateral Lung location: lower lobe of lung Pneumonia type: due to unspecified organism Qualified Code(s): J18.9 - Pneumonia, unspecified organism (2) No pertinent past medical history: (3) Shortness of breath: Plan #Pneumonia #Leukocytosis, SOB 2/2 to above #Does not follow a PCP #Breast nodule 2.4 cm #Severe emphysema - She presented with sob and now is requiring o2 5L. C-reactive protein elevated, leukocytosis 14,000 on admission. She does not follow with Dr. And considers herself generally healthy. Does not have a primary care doctor either. She denies having any history of COPD or any other medical problems. She is not on any home medications at home. CT did rule out PE. ? CT chest does show emphysematous changes which seem to be severe. There is evidence of pneumonia ? Placed on ceftriaxone, azithromycin ? DuoNeb every 6 hours as needed ? Placed on normal saline 125 cc/h ? Respiratory viral panel ordered ? Check procalcitonin ? Check TSH ? Lactic acid 0.7. BNP 67. ? Check blood cultures, sputum culture Gram stain ? UA negative - Check bacterial angtigens, strep, legionella - Wean off o2 as able - There is asymmetric 2.4 cm soft tissue nodule right breast image 6. Follow-up with mammography is recommended. Patient will need to have prescription for mammography at discharge. Full code DVT prophylaxis: Heparin SQ twice daily. Plan for today May 01, 2024. Patient states she is clinically improving. Remains on 5 L/min supplemental O2. Patient reports that she has been feeling increasingly short of breath for the past several weeks now. States that initially the shortness of breath was related to climbing stairs or more than usual activity, however he was much worsened over the past week. She had increased cough expectoration and shortness of breath. States that you after an initial. Of improvement, she started to clinically worsen again. Respiratory viral panel negative. Sputum culture not available. Overall clinical impression that of pneumonia with COPD exacerbation. Patient santillan snever been evaluated in the past for COPD, however given severe emphysematous changes, history of chronic smoking, increasing dyspnea over several weeks, clinically suspected to have COPD. Discussed with her that she will need PFTs as outpatient to confirm the diagnosis. Follow-up to be arranged with [facility] medicine at the time of discharge. Additionally discussed with her discovery of incidental nodule in the right breast for which mammogram is recommended. Would defer this to PCP as outpatient. Continue IV ceftriaxone and azithromycin for today. Discontinue IV steroids. Changed to prednisone p.o. 40 mg twice daily. Home O2 eval, anticipate that patient will need to discharge with supplemental O2. Attestations 2 Medical Necessity Statement*: continue iv abx, change steroids to oral Diagnoses Pneumonia J18.9 Laterality: bilateral Lung location: lower lobe of lung Pneumonia type: due to unspecified organism No pertinent past medical history Z78.9 Shortness of breath R06.02
[2024-05-01] MEDS: predniSONE 20 mg Tablet 40 MG PO (17:54)
[2024-05-02] VITALS (10 sets, daily range): BP systolic 106–124; BP diastolic 58–66; PULSE 55–89; RESP 16–22; TEMP 36.6–36.8; O2SAT 85–98
[2024-05-02] MEDS: heparin 5,000 unit/mL INJ 1 mL 5000 UNIT SUBCUT (00:53)
[2024-05-02] MEDS: cefTRIAXone 1,000 mg SDV 1000 MG IVP (00:53)
[2024-05-02] MEDS: azithromycin 500 MG in sodium chloride 0.9% 250 ML 250 MG IV (00:54)
[2024-05-02 05:42] LABS: Basophils % 0.1 %; Hematocrit 30.7 % (36-47); Lymphocytes # 1.8 10^3/uL (0.8-4.8); Lymphocytes % 15.2 %; Mean Corpuscular HGB Conc 31.9 g/dL (30-55); Mean Corpuscular Hemoglobin 30.2 pg (27-33); Mean Corpuscular Volume 94.8 fl (85-98); Mean Platelet Volume 11.3 fL (7.4-10.4); Monocytes # 0.5 10^3/uL (0.2-0.9); Monocytes % 4.4 %; Neutrophils # 9.48 10^3/uL (1.8-7.7); Neutrophils % 79.5 %; Nucleated Red Blood Cells % 0 %; Platelet Count 240 10^3/cmm (157-399); Red Blood Count 3.24 10^6/uL (3.85-5.65); Red Cell Distribution Width 12.5 % (12.1-15.1); White Blood Count 11.92 10^3/uL (3.29-11.43)
[2024-05-02 06:11] LABS: Alanine Aminotransferase 30 U/L (0-33); Albumin Level 3.3 g/dL (3.5-5.2); Alkaline Phosphatase 160 U/L (35-105); Anion Gap 14.7 (5-19); Aspartate Amino Transferase 42 U/L (0-32); Blood Urea Nitrogen 12 mg/dL (6-20); Calcium 9.1 mg/dL (8.5-10.5); Carbon Dioxide 25 mmol/L (22-29); Chloride 107 mmol/L (98-107); Creatinine Clr Calc Pharmacy 88.1019; Glomerular Filtration Rate 102.3 mL/min (90-130); Glucose 136 mg/dL (65-115); Osmolality Calculated 296 mOsm/kg (285-295); Potassium 4.7 mmol/L (3.5-5.1); Sodium 142 mmol/L (136-145); Total Bilirubin 0.2 mg/dL (0.15-1.2); Total Protein 6.3 g/dL (6.6-8.7)
[2024-05-02] MEDS: ipratropium-albuterol 3 mL Neb INHALATION ×2 (07:34→11:07)
[2024-05-02] MEDS: predniSONE 20 mg Tablet 40 MG PO (08:09)
--- NOTE | 2024-05-02 15:01 | P.DS_ITS ---
Discharge Providers Date of Admission: 04/30/24 00:13 Date of Discharge: May 02, 2024 Attending Provider at Admission: Teresita Pickens MD Attending Provider at Discharge: Magali Andres MD Diagnoses at Discharge Discharge Diagnosis (1) Pneumonia: Status: Acute Qualifiers: Laterality: bilateral Lung location: lower lobe of lung Pneumonia type: due to unspecified organism Qualified Code(s): J18.9 - Pneumonia, unspecified organism (2) No pertinent past medical history: Status: Acute (3) Shortness of breath: Status: Inactive Reason for Visit Reason for Visit: Sudden Severe SOB pain in ribs Left Hospital Course Hospital Course Trisha Silveira is a 58 year old female With no significant past medical history presented to the hospital with pain on left side of her chest. She was hypoxic down to low 80s. WBC 14,000. CT chest abdomen pelvis was performed which ruled out pulmonary embolism however showed bilateral pneumonia worse on the left than the right.Patient was given Rocephin and azithromycin for community-acquired pneumonia. EKG showed no acute ST-T wave changes. Troponin series without significant delta at 2 or 6 hours. TTE was normal. Low concern for ACS.overall clinical impression compatible with community-acquired pneumonia. CTA of the chest also showed severe emphysematous changes in bilateral lungs. Patient is a lifelong smoker. Suspect that she has underlying COPD. Patient had diffuse bilateral wheezing on exam, likely also component of COPD exacerbation in addition to community-acquired pneumonia. She was treated with IV ceftriaxone and azithromycin in the hospital, this is being transitioned to Augmentin 875 mg twice daily for 5 days at the time of discharge. Additionally discharged with prednisone taper over the next week. Advair and Spiriva inhalers added for underlying COPD. She qualified for supple mental oxygen based on a home O2 eval. This was arranged for home use. Patient did not have any established primary care physician at the time of arrival, 1 was arranged for her. Will likely need PFTs as outpatient for formal diagnosis of COPD. Incidentally noted 2.4 cm soft tissue nodule in the right breast for which follow-up with mammography is recommended. Please follow-up with your primary care physician regarding the same. Patient counselled to quit smoking- states that she will do this. Physical Exam Narrative: General: No acute distress, AO x3 HEENT: PERRLA, pupils bilaterally equal and reactive, pallors not present Chest: Normal vesicular breath sounds, no added sounds, equal good air entry bilaterally CVS: S1-S2 regular, no murmurs, no tachycardia, no gallops, no rubs Abdomen: Soft, nontender, no organomegaly, bowel sounds present Neuro: No focal deficits, no facial deformity, AO x3, power 5/5 in all limbs Discharge Data Studies Completed and Pending Completed Studies During Hospitalization Category Date Time Status CTA chest CT abdomen pelvis [CT angio chest w abd pel w Cat Scan 04/29/24 22:32 Completed con] Stat XR chest 1V portable [id number] Routine Exams 04/30/24 14:41 Completed XR chest 1V portable [id number] Stat Exams 04/29/24 22:31 Completed US echo complete [CV. echo complete* [id number]] Routine Ultrasound 04/30/24 01:03 Completed Pending at discharge Category Date Time Status Blood Culture Stat Lab 04/30/24 00:18 Results Radiology Impressions Chest/Abdomen/Pelvis CT 04/29/24 22:32 IMPRESSION: 1. There is no pulmonary embolism. 2. Mild bibasilar airspace opacity [id number] is present, consistent with probable pneumonic infiltrates. Severe emphysematous changes. 3. There is asymmetric 2.4 cm soft tissue nodule right breast image 6. Follow-up with mammography is recommended. IMPRESSION: No acute abnormality in the abdomen or pelvis. Chest X-Ray 04/30/24 14:41 IMPRESSION: 1. No significant acute change. 2. Additional findings as above. Laboratory Results WBC 11.92 10^3/uL (3.29-11.43) H 05/02/24 05:09 RBC 3.24 10^6/uL (3.85-5.65) L 05/02/24 05:09 Hgb 9.80 g/dL (11.27-16.99) L 05/02/24 05:09 Hct 30.7 % (36-47) L 05/02/24 05:09 MCV 94.8 fl (85-98) 05/02/24 05:09 MCH 30.2 pg (27-33) 05/02/24 05:09 MCHC 31.9 g/dL (30-55) 05/02/24 05:09 RDW 12.5 % (12.1-15.1) 05/02/24 05:09 Plt Count 240 10^3/cmm (157-399) 05/02/24 05:09 MPV 11.3 fL (7.4-10.4) H 05/02/24 05:09 Neut % (Auto) 79.5 % 05/02/24 05:09 Lymph % (Auto) 15.2 % 05/02/24 05:09 Eddy % (Auto) 4.4 % 05/02/24 05:09 Eos % (Auto) 0.0 % 05/02/24 05:09 Baso % (Auto) 0.1 % 05/02/24 05:09 Neut # (Auto) 9.48 10^3/uL (1.8-7.7) H 05/02/24 05:09 Lymph # (Auto) 1.8 10^3/uL (0.8-4.8) 05/02/24 05:09 Eddy # (Auto) 0.5 10^3/uL (0.2-0.9) 05/02/24 05:09 Eos # (Auto) 0.0 10^3/uL (0.0-0.8) 05/02/24 05:09 Baso # (Auto) 0.0 10^3/uL (0.0-0.1) 05/02/24 05:09 Nucleated RBC % (auto) 0 % 05/02/24 05:09 Nucleated RBCs # 0.0 /100WBC 05/02/24 05:09 D-Dimer 0.65 ug/mLFEU (0-0.59) H 04/29/24 22:42 Specimen Type Arterial 04/29/24 22:40 Sample Site Brachial, right 04/29/24 22:40 ABG pH 7.35 (7.35-7.45) 04/29/24 22:40 ABG pCO2 49.5 mmHg (35-45) H 04/29/24 22:40 ABG pO2 60.9 mmHg (80.0-100.0) L 04/29/24 22:40 ABG HCO3 27.1 mmol/L (22-26) H 04/29/24 22:40 ABG Base Excess 0.8 mmol/L (-2.0-2.0) 04/29/24 22:40 Jung Test N/a 04/29/24 22:40 Hematocrit 39.9 % (37-47) 04/29/24 22:40 O2 Delivery Device Nc 04/29/24 22:40 O2 Liters/Min 3.0 % 04/29/24 22:40 Security Lead ID [email or web address] 04/29/24 22:40 Sodium 142 mmol/L (136-145) 05/02/24 05:09 Potassium 4.7 mmol/L (3.5-5.1) 05/02/24 05:09 Chloride 107 mmol/L (98-107) 05/02/24 05:09 Carbon Dioxide 25 mmol/L (22-29) 05/02/24 05:09 Anion Gap 14.7 (5-19) 05/02/24 05:09 BUN 12 mg/dL (6-20) 05/02/24 05:09 Creatinine 0.6 mg/dL (0.5-0.9) 05/02/24 05:09 GFR Calculation 102.3 mL/min (90-130) 05/02/24 05:09 Glucose 136 mg/dL (65-115) H 05/02/24 05:09 Calculated Osmolality 296 mOsm/kg (285-295) H 05/02/24 05:09 Lactic Acid 0.9 mmol/L (0.5-2.2) 05/01/24 03:28 Calcium 9.1 mg/dL (8.5-10.5) 05/02/24 05:09 Magnesium 1.9 mg/dL (1.7-2.3) 05/01/24 03:28 Total Bilirubin 0.2 mg/dL (0.15-1.2) 05/02/24 05:09 AST 42 U/L (0-32) H 05/02/24 05:09 ALT 30 U/L (0-33) 05/02/24 05:09 Alkaline Phosphatase 160 U/L (35-105) H 05/02/24 05:09 Troponin T 5th Gen ng/L 12 ng/L (0-10) H 04/30/24 14:12 Troponin T Baseline 7 ng/L (0-10) 04/29/24 22:42 Troponin T 120 Minute 7.49 ng/L (0-10) 04/30/24 00:20 Delta Troponin T 0.49 ABS# (0-10) 04/30/24 00:20 Troponin T Hi Sens 6Hr 8.74 ng/L (0-10) 04/30/24 04:40 Troponin T Hi Sens 6Hr Delta 1.74 ng/L (0-12) 04/30/24 04:40 C-Reactive Protein 45.0 mg/L (0.0-4.9) H 04/29/24 22:42 NT-Pro-B Natriuret Pep 67 pg/mL (0-125) 04/29/24 22:42 Total Protein 6.3 g/dL (6.6-8.7) L 05/02/24 05:09 Albumin 3.3 g/dL (3.5-5.2) L 05/02/24 05:09 Globulin 3.0 g/dL (1.3-4.6) 05/02/24 05:09 Lipase 20 U/L (13-60) 04/29/24 22:42 Procalcitonin 0.06 ng/mL (0-0.5) 04/30/24 00:20 TSH 1.92 uIU/mL (0.27-4.20) 04/30/24 00:20 Urine Color Yellow (Yellow) 04/30/24 07:32 Urine Appearance Clear (CLEAR) 04/30/24 07:32 Urine pH 5 (5-7) 04/30/24 07:32 Ur Specific [place] 1.010 (1.005-1.030) 04/30/24 07:32 Urine Protein Neg (Negative) 04/30/24 07:32 Urine Glucose (UA) Norm (Normal) 04/30/24 07:32 Urine Ketones Negative (Negative) 04/30/24 07:32 Urine Blood Neg (Negative) 04/30/24 07:32 Urine Nitrate Negative (Negative) 04/30/24 07:32 Urine Bilirubin Neg (Negative) 04/30/24 07:32 Urine Urobilinogen Norm mg/dL (Negative) 04/30/24 07:32 Ur Leukocyte Esterase Negative (Negative) 04/30/24 07:32 Adenovirus (PCR) Not detected (NOT DETECT) 04/30/24 00:05 C. pneumoniae DNA (PCR) Not detected (NOT DETECT) 04/30/24 00:05 Coronavirus 229E (PCR) Not detected (NOT DETECT) 04/30/24 00:05 Human Metapneumovir PCR Not detected (NOT DETECT) 04/30/24 00:05 Influenza A (H1) PCR Not detected (NOT DETECT) 04/30/24 00:05 Influ A (H1/09) PCR Not detected (NOT DETECT) 04/30/24 00:05 Influenza A (H3) PCR Not detected (NOT DETECT) 04/30/24 00:05 Influenza Type A (PCR) Not detected (NOT DETECT) 04/30/24 00:05 Influenza Type B (PCR) Not detected (NOT DETECT) 04/30/24 00:05 M. pneumoniae (PCR) Not detected (NOT DETECT) 04/30/24 00:05 Parainfluenza 1 (PCR) Not detected (NOT DETECT) 04/30/24 00:05 Parainfluenza 2 (PCR) Not detected (NOT DETECT) 04/30/24 00:05 Parainfluenza 3 (PCR) Not detected (NOT DETECT) 04/30/24 00:05 Parainfluenza 4 (PCR) Not detected (NOT DETECT) 04/30/24 00:05 RSV Type A (PCR) Not detected (NOT DETECT) 04/30/24 00:05 RSV Type B (PCR) Not detected (NOT DETECT) 04/30/24 00:05 Entero/Rhino (PCR) Not detected (NOT DETECT) 04/30/24 00:05 SARS-CoV-2 (PCR) Not detected (NOT DETECT) 04/30/24 00:05 Vitals Last Vital Signs Temp 97.9 F 05/02/24 07:31 Pulse 89 05/02/24 12:46 Resp 20 H 05/02/24 12:46 BP 124/66 05/02/24 12:46 Pulse Ox 90 05/02/24 12:46 O2 Del Method Nasal Cannula 05/02/24 11:46 O2 Flow Rate 4 05/02/24 11:08 Discharge Plan Discharge Patient Disposition: Home Condition: Stable Prescriptions: New acetaminophen 325 mg Tablet 650 mg PO Q6H PRN (Reason: Mild/Mod Pain Or Temp >/= 101) 7 Days Qty: 7 0RF prednisone 10 mg tablet See Taper PO BID Qty: 42 0RF Taper: predniSONE 60-10 60 mg Daily for 2 Days and 0 Hour 50 mg Daily for 2 Days and 0 Hour 40 mg Daily for 2 Days and 0 Hour 30 mg Daily for 2 Days and 0 Hour 20 mg Daily for 2 Days and 0 Hour 10 mg Daily for 2 Days and 0 Hour Advair Diskus 500-50 mcg/dose blister with device 1 inh inhalation BID 30 Days Qty: 60 0RF Spiriva with HandiHaler 18 mcg capsule, w/inhalation device 1 cap inhalation DAILY 30 Days Qty: 30 0RF Rx Instructions: puncture 1 cap using device; one dose = 2 inhalations amoxicillin-pot clavulanate 875-125 mg tablet 1 tab PO BID 5 Days Qty: 10 0RF Protonix 40 mg tablet,delayed release (DR/EC) 40 mg PO DAILY 28 Days Qty: 30 0RF Discharge Orders: Discharge Order (Routine); Ordered 05/02/24 Ordered By: Magali Andres Other Ambulatory Orders: DME: Oxygen (Order) Location: None Selected Ordered By: Magali Andres Referrals: Chelsea Kim, [facility] [Nurse Practitioner] - 05/05/24 9:00 am Discharge Diet: Usual diet Discharge Activity: Increase activity as tolerated Patient Instructions: Acetaminophen (By mouth), Prednisone (By mouth), Amoxici llin (By mouth), Pantoprazole (By mouth) (Protonix), Fluticasone/Salmeterol (By breathing) (Advair Diskus 100/50, Advair..., Tiotropium (By breathing) (Spiriva, Spiriva Respimat), Altered Mental Status (GEN), Opioid Safety, Pain Management, Pneumonia Stoplight, Pneumonia - Bacterial Discharge Attestations Time Spent in Discharge Care*: greater than 30 min Quality Metrics Clinical Quality Measures [ No reported AMI, CVA or VTE this stay] Coding Level of Care Code Acute Code for [facility] Fwd Diagnoses Pneumonia J18.9 Laterality: bilateral Lung location: lower lobe of lung Pneumonia type: due to unspecified organism No pertinent past medical history Z78.9 Shortness of breath R06.02
== END 2024-05-02 13:21 | disposition home or self-care (01) | DRG 194 ==
LOC: ER 04-30 00:19 → CSU 04-30 00:27
PROVIDERS: Admitting Provider Internal Medicine; Emergency Provider Nurse Practitioner Family; Visit Provider Student in an Organized Health Care Education/Training Program
DX: J18.9 Pneumonia, unspecified organism (principal); J44.0 Chronic obstructive pulmonary disease with (acute) lower respiratory infection; F17.210 Nicotine dependence, cigarettes, uncomplicated; J43.9 Emphysema, unspecified; R09.02 Hypoxemia; N63.0 Unspecified lump in unspecified breast
CPT/HCPCS: 36415; 36600; 71045; 71275; 74177; 80048; 80053; 81003; 82803; 83605; 83690; 83735; 83880; 84145; 84443; 84484; 85025; 85378; 86140; 87040; 87486; 87581; 87633; 93005; 93306; 94640; 94760; 96365; 96372; 96375; 96376; 99285; J0456; J0696; J1170; J1200; J1630; J1644; J1940; J2270; J2919; J7030; J7050; J7512; Q9967

== ENCOUNTER 2024-08-24 14:54 | Outpatient (CLI) | payer OTHER, SELFPAY ==
--- NOTE | 2024-08-24 14:57 | MM_ITS ---
WS: [email or web address] Bilateral screening 3D tomosynthesis digital mammogram, 08/24/2024 2:57 PM Clinical Data: SCREEN Comparison: None. Findings: The left breast is normal. The right breast has asymmetric tissue in the upper medial aspect which d oes not have a distinct border. There are no associated clustered calcifications. . MM/MM scr BI tomosynthesis [id number] Impression: 1. Asymmetric tissue in medial upper breast with a proximal diameter 3 cm and r ecommend compression cc view and right ML view, along with ultrasound. 2. Negative left breast. BIRADS: 1 - Negative. FOLLOW UP: See Report DENSITY: There are scattered areas of fibroglandular density. The CAD pattern checker was used
== END 2024-08-24 14:55 | disposition home or self-care (01) ==
LOC: RAD 14:55
DX: Z12.31 Encounter for screening mammogram for malignant neoplasm of breast (principal); N64.89 Other specified disorders of breast
CPT/HCPCS: 77063; 77067

== ENCOUNTER 2024-10-19 13:30 | Outpatient (CLI) | payer BC, MEDICAID, SELFPAY ==
--- NOTE | 2024-10-19 13:51 | MM_ITS ---
WS: [email or web address] Right breast diagnostic 3D tomosynthesis digital mammogram, 10/19/2024 Clinical Data: ABNORMAL MAMMO Comparison: Mammogram, 08/24/2024 Findings: The right breast showed no abnormal masses. Only slightly asymmetric tissue could be seen in the uppe r outer quadrant. No spiculated masses nor clustered calcifications are seen. MM/MM diag RT tomosynthesis [id number] Impression: 1. Minimal asymmetric tissue in upper outer quadrant right breast. 2. Right breast ultrasound will be performed. DENSITY: There are scattered areas of fibroglandular density. BIRADS: 1 - Negative. FOLLOW UP: See Report The CAD fitting room checker was used.
--- NOTE | 2024-10-19 13:52 | US_ITS ---
WS: [email or web address] Right breast ultrasound, 10/19/2024 Clinical Data: ABNORMAL MAMMO Comparison: Right breast mammogram, 10/19/2024 Findings: Only normal breast tissue could be seen in the superior aspect of the right breast extending to 1:00. There was a small lymph node seen. No spiculated masses were present. There were no cysts. US/US breast RT limited* [id number] Impression: 1. Negative right breast ultrasound. 2. Recommend annual screening mammograms. BIRADS: 1 - Negative. FOLLOW UP: See Report
== END 2024-10-19 13:31 | disposition home or self-care (01) ==
PROVIDERS: Visit Provider Advanced Practice Midwife
DX: R92.8 Other abnormal and inconclusive findings on diagnostic imaging of breast (principal); R92.321 Mammographic fibroglandular density, right breast; N63.11 Unspecified lump in the right breast, upper outer quadrant
CPT/HCPCS: 76642; 77061; G0279